=== PATIENT | male | born 2000 | race Caucasian/White ===

== ENCOUNTER 2018-01-29 22:30 | Emergency (ER) | payer OTHER ==
[2018-01-29] MEDS: NAPROXEN 250 MG TAB PO (23:36)
== END 2018-01-29 23:44 | disposition home or self-care (01) ==
LOC: M ED 22:30
DX: M54.12 Radiculopathy, cervical region (principal); J30.89 Other allergic rhinitis; Z79.899 Other long term (current) drug therapy; Z88.0 Allergy status to penicillin; F17.220 Nicotine dependence, chewing tobacco, uncomplicated
CPT/HCPCS: 99283